=== PATIENT | male | born 1950 | race Caucasian/White ===

== ENCOUNTER → 2017-05-18 | Outpatient (CLI) | payer MEDICARE, BC ==
[~2017-05-18] MED LIST: ACTOPLUS MET1 TABLET; ACTOPLUS MET1 TABLET PO; ACTOS30 MG; ACTOS30 MG PO; ASPIRIN81 M1 PO; Aleve PO; BUDEPRION XL300 MG PO; BUPROPION XL300 MG; FLOMAX0.4 MG PO; GLUCOPHAGE1000 MG PO; LISINOPRIL20 MG; LISINOPRIL20 MG PO; MULTIVITAMIN1 EAC2 PO; MULTIVITAMINS1 EAC2; PERCOCET 5/31 TABLET PO; TORADOL10 MG PO; TRULICITY1.5 MG/0.5 SC; Theragran PO; VIT D 3; VITAMIN D2000 INTUN; Vitamin D PO; Wellbutrin XL PO; ZOFRAN ODT4 MG PO; Zestril,Prinivil PO; Zyvox PO; aspirin
== END | disposition home or self-care (01) ==
LOC: CDC 15:06
DX: I49.9 Cardiac arrhythmia, unspecified (principal); I45.4 Nonspecific intraventricular block; R94.31 Abnormal electrocardiogram [ECG] [EKG]
CPT/HCPCS: 93000

== ENCOUNTER 2017-05-20 10:38 | Day surgery (SDC) | payer OTHER, BC ==
[~2017-05-20] VITALS: Ht 190.5 cm; Wt 103.8 kg
[2017-05-20 11:39] VITALS: BP 147/84
[2017-05-20 11:48] LABS: POINT-OF-CARE METER ID UU14174212
[2017-05-20 13:18] LABS: POINT-OF-CARE METER ID UU13113675
[2017-05-20 13:33] VITALS: BP 148/86
[2017-05-20 14:40] VITALS: BP 137/84
== END 2017-05-20 15:05 | disposition home or self-care (01) ==
LOC: SDC 10:38
PROVIDERS: Urology
PROC: 0TF68ZZ Fragmentation in Right Ureter, Via Natural or Artificial Opening Endoscopic (ICD-10-PCS; principal; 2017-05-20)
PROC: 0T768DZ Dilation of Right Ureter with Intraluminal Device, Via Natural or Artificial Opening Endoscopic (ICD-10-PCS; principal; 2017-05-20)
PROC: 0TC68ZZ Extirpation of Matter from Right Ureter, Via Natural or Artificial Opening Endoscopic (ICD-10-PCS; principal; 2017-05-20)
PROC: BT1D1ZZ Fluoroscopy of Right Kidney, Ureter and Bladder using Low Osmolar Contrast (ICD-10-PCS; principal; 2017-05-20)
DX: N20.1 Calculus of ureter (principal); Z87.442 Personal history of urinary calculi; E11.9 Type 2 diabetes mellitus without complications; E78.5 Hyperlipidemia, unspecified; Z79.82 Long term (current) use of aspirin; Z79.84 Long term (current) use of oral hypoglycemic drugs; Z80.42 Family history of malignant neoplasm of prostate; Z82.5 Family history of asthma and other chronic lower respiratory diseases
CPT/HCPCS: 74000; 74420; 82365 90; 82948; J0690; J1885; J3010; J7050

== ENCOUNTER 2018-01-10 19:09 | Inpatient (IN) | payer OTHER, BC ==
[~2018-01-10] VITALS: Ht 190.5 cm; Wt 79.0 kg
[2018-01-10 19:42] LABS: HEMATOCRIT 46.1 % (38.0-50.0); HEMOGLOBIN 15.9 G/DL (12.5-16.6); MCH 30.8 PG (29.0-34.0); MCHC 34.5 G/DL (30.0-36.0); MCV 89.3 FL (86-99); PLATELET COUNT 228 K/uL (156-360); RBC DIS.WIDTH-CV 13.6 % (11.8-14.6); RBC DIS.WIDTH-SD 44.7 % (39-53); RED BLOOD COUNT 5.16 M/uL (4.00-5.50); WHITE BLOOD COUNT 14.2 K/uL (4.1-10.2)
[2018-01-10 19:45] LABS: CHLORIDE 106 mEq/L (99-109); POTASSIUM 4.3 mEq/L (3.7-5.4); SODIUM 145 mEq/L (136-147)
[2018-01-10 19:47] LABS: GLUCOSE 198 mg/dL (70-99)
[2018-01-10 19:51] LABS: CREATININE 1.8 mg/dL (0.6-1.3); GFR ESTIMATE (CALCULATED) 40 mL/min/ (58.99-99999)
[2018-01-10 19:52] LABS: UREA NITROGEN (BUN) 20 mg/dL (9-23)
[2018-01-10 19:54] LABS: TROP-I INTERPRETATION NEGATIVE; TROPONIN-I 0.02 ng/mL (0.0-0.30)
[2018-01-10] MEDS ORDERED: TAMSULOSIN HCL0.4 MG PO (20:37)
[2018-01-10] MEDS ORDERED: ATORVASTATIN CA10 MG PO (20:42)
[2018-01-10] MEDS ORDERED: METFORMIN HCL1000 MG PO (20:44)
[2018-01-10] MEDS ORDERED: BUPROPION XL300 MG PO (20:47)
[2018-01-10] MEDS ORDERED: GLIPIZIDE10 MG PO (20:47)
[2018-01-10] MEDS ORDERED: LISINOPRIL20 MG PO (20:48)
[2018-01-10] MEDS ORDERED: OMEPRAZOLE40 M1 PO (20:48)
[2018-01-10] MEDS ORDERED: ONE DAILY MULT1 EACH PO (20:49)
[2018-01-10] MEDS ORDERED: ALEVE220 MG PO (20:51)
[2018-01-10] MEDS ORDERED: VITAMIN D22000 UNIT PO (20:51)
[2018-01-10 23:18] VITALS: BP 132/86
[2018-01-10 23:19] LABS: HDL CHOLESTEROL 35 MG/DL (Desirable>=40); LDL CHOLESTEROL 52 mg/dL (Desirable<100); NON-HDL CHOLESTEROL 71 mg/dL (Desirable<160); TOTAL CHOLESTEROL 106 mg/dL (Desirable<200); TRIGLYCERIDES 93 MG/DL (Normal: <150)
[2018-01-11 01:57] LABS: HEMATOCRIT 41.3 % (38.0-50.0); HEMOGLOBIN 14.4 G/DL (12.5-16.6); MCH 31.2 PG (29.0-34.0); MCHC 34.9 G/DL (30.0-36.0); MCV 89.6 FL (86-99); PLATELET COUNT 195 K/uL (156-360); RBC DIS.WIDTH-CV 13.9 % (11.8-14.6); RBC DIS.WIDTH-SD 45.3 % (39-53); RED BLOOD COUNT 4.61 M/uL (4.00-5.50); WHITE BLOOD COUNT 10.4 K/uL (4.1-10.2)
[2018-01-11 02:10] LABS: CHLORIDE 107 mEq/L (99-109); POTASSIUM 4.1 mEq/L (3.7-5.4); SODIUM 143 mEq/L (136-147)
[2018-01-11 02:12] LABS: GLUCOSE 154 mg/dL (70-99)
[2018-01-11 02:16] LABS: CREATININE 1.5 mg/dL (0.6-1.3); GFR ESTIMATE (CALCULATED) 49 mL/min/ (58.99-99999)
[2018-01-11 02:17] LABS: UREA NITROGEN (BUN) 20 mg/dL (9-23)
[2018-01-11 02:25] LABS: TROP-I INTERPRETATION NEGATIVE; TROPONIN-I 0.07 ng/mL (0.0-0.30)
[2018-01-11 03:37] VITALS: BP 118/70
[2018-01-11 07:31] VITALS: BP 137/91
[2018-01-11 08:28] LABS: THYROTROPIN (TSH) 2.9 MIU/L (0.4-5.5)
[2018-01-11 09:18] LABS: TROP-I INTERPRETATION NEGATIVE; TROPONIN-I 0.06 ng/mL (0.0-0.30)
[2018-01-11 11:49] VITALS: BP 140/89
[2018-01-11 15:31] VITALS: BP 136/83
[2018-01-11] MEDS ORDERED: LISINOPRIL10 MG PO (16:44)
[2018-01-11] MEDS ORDERED: LIPITOR20 MG PO (16:45)
== END 2018-01-11 17:59 | disposition home or self-care (01) | DRG 309 ==
LOC: EME 19:09 → EDOF 22:08 → 4EAST 22:08 → ENRESERV 22:09 → 4EAST 23:38
PROVIDERS: Emergency Medicine; Hospitalist
PROC: 5A2204Z Restoration of Cardiac Rhythm, Single (ICD-10-PCS; principal; 2018-01-10)
DX: I48.92 Unspecified atrial flutter (principal); N17.9 Acute kidney failure, unspecified; I10 Essential (primary) hypertension; E11.9 Type 2 diabetes mellitus without complications; E78.5 Hyperlipidemia, unspecified; G47.30 Sleep apnea, unspecified; N20.0 Calculus of kidney; I95.9 Hypotension, unspecified; I47.1 Supraventricular tachycardia; E66.9 Obesity, unspecified; I45.10 Unspecified right bundle-branch block; Z87.442 Personal history of urinary calculi; Z68.29 Body mass index [BMI] 29.0-29.9, adult; Z79.84 Long term (current) use of oral hypoglycemic drugs; Z79.82 Long term (current) use of aspirin; Z85.09 Personal history of malignant neoplasm of other digestive organs; Z80.42 Family history of malignant neoplasm of prostate
CPT/HCPCS: 71045; 78582; 80048; 80061; 82948; 83735; 83880; 84443; 84484; 85027; 85379; 93005; 93306; 99281; 99285; A9540; A9567; J1650; J2250; J3010; J7030